=== PATIENT | male | born 1950 | race Caucasian/White ===

== ENCOUNTER 2018-08-24 18:58 | Emergency (ER) | payer OTHER ==
[~2018-08-24] VITALS: Ht 185.4 cm; Wt 104.3 kg
[2018-08-24 19:00] VITALS: BP 116/62
[2018-08-24] MEDS ORDERED: ZYRTEC10 M2 PO (20:04)
[2018-08-24] MEDS ORDERED: PATANOL5 ML OPHTHALMIC (20:04)
== END 2018-08-24 20:29 | disposition home or self-care (01) ==
LOC: ER 18:58 → EDBD 18:58 → ER 20:29
DX: H11.422 Conjunctival edema, left eye (principal); J30.9 Allergic rhinitis, unspecified; E11.9 Type 2 diabetes mellitus without complications; I10 Essential (primary) hypertension

== ENCOUNTER 2019-04-21 16:34 | Inpatient (IN) | payer OTHER ==
[~2019-04-21] VITALS: Ht 185.4 cm; Wt 112.0 kg
--- NOTE | ~2019-04-21 | HC ---
[facility] [place] [address] CONSULTATION Name: REJI COBURN Room #: 214-P ADM IN M.R.#: [id number] Admission: 04/21/19 Attend Phys: Arthur Cowart MD Discharge: Date of : 50 Report #: [id number] THIS REPORT FOR: cc: Benton Kendall MD, Steven E. MD Stephens, Thad A. MD ~ CC: Arthur Kendall DATE OF SERVICE: 04/23/2019 WOUND CARE CONSULTATION REQUESTING PHYSICIAN: Dr. Ball. CHIEF COMPLAINT: Venous leg ulcers and swelling. HISTORY OF PRESENT ILLNESS: This is a 68-year-old white male who was admitted to the hospital for syncope, which he states was multiple times over the past several weeks. The patient states that he also has noted over the past approximately 6 weeks, he has had increased amount of edema in his lower extremities, which has developed into blisters, then developed into open ulcerations. The patient states he has just been treating them with [id number]-[id number] gauze. The patient states prior to the onset of these ulcerations, he had never had any other wounds he could not heal on his own. The patient denies any other associated ulcerations at this time. The patient states they are essentially nonpainful. The patient states he has a history of MRSA in the past. PAST MEDICAL HISTORY: Significant for diabetes, hypertension, atrial fibrillation. CURRENT MEDICATIONS: Multiple, I reviewed the patient's medication list. DRUG ALLERGIES: None. SOCIAL HISTORY: The patient denies a history of smoking or alcohol use. FAMILY HISTORY: Not pertinent to current medical condition. REVIEW OF SYSTEMS: CONSTITUTIONAL: The patient denies fevers or chills. NEUROLOGIC: The patient denies numbness, tingling or weakness in arms or legs. The patient does complain of syncope several times over the past several weeks. EYES: No complaints. ENT: No complaints. [facility] [address] [place] [address] CONSULTATION Name: REJI COBURN Room #: 214-P [facility] IN ..#: [id number] Admission: 04/21/19 Attend Phys: Arthur Cowart MD Discharge: Date of : 50 Report #: [id number] CARDIAC: The patient has chronic lower extremity edema, but denies chest pain or palpitations. RESPIRATORY: The patient denies shortness of breath, cough or wheezes. GASTROINTESTINAL: The patient denies nausea, vomiting or abdominal pain. GENITOURINARY: The patient denies urgency or frequency. MUSCULOSKELETAL: No complaints. SKIN: There are multiple venous leg ulcers, left greater than right. PHYSICAL EXAMINATION: VITAL SIGNS: Temperature 36.1, pulse 72, respirations 18, BP 139/78. GENERAL: This is an alert and oriented x 3, pleasant white male who is in no obvious distress. HEENT: He is normocephalic, atraumatic. Mucous membranes are moist. Pupils are round. Sclerae white. NECK: Supple, nontender. LUNGS: Clear. HEART: Irregularly irregular. ABDOMEN: Soft, nontender. EXTREMITIES: The patient moves all extremities without difficulty. Evaluation of bilateral lower extremities reveals 2+ edema. Distal pulses intact. There is significant amount of stasis dermatitis noted on bilateral lower extremities as well as multiple superficial ulcerations on both legs, left greater than right. All these ulcers are clean and granulating. There is minimal amount of serous drainage noted from these ulcers without signs of infection. Bilateral heels and feet are intact. NEUROLOGIC: Cranial nerves 2-12 grossly intact. Motor and sensory grossly intact. LABORATORY DATA: White count 5.3, hemoglobin 11.2, BUN 11, creatinine 1.4. Arterial Dopplers bilaterally showed no signs of occlusion or hemodynamically significant stenosis. IMPRESSION: 1. Chronic ulcers, bilateral lower extremities, left greater than right, without signs of significant infection. 2. Venous insufficiency with edema. 3. History of syncope, workup undergoing. 4. Generalized debility. PLAN: At this time, we will start AmLactin to the legs for the stasis dermatitis and cover this with Xeroform, Kerlix and Rylan in bilateral lower extremities from toes to knee. We will make sure we maximize the patient's oral protein supplementation for continued healing. I have talked to the patient [address] [address] CONSULTATION Name: REJI COBURN Room #: 214-P [facility] IN M.R.#: [id number] Admission: 04/21/19 Attend Phys: Arthur Cowart MD Discharge: Date of : 50 Report #: [id number] about outpatient workup for venous insufficiency. We will continue all other current medications and we will continue to follow the patient. By: [id number] [id number] David Birch MD /nt
[~2019-04-21 16:34] MED LIST: PATANOL5 ML OPHTHALMIC; ZYRTEC10 M2 PO
[2019-04-21 16:40] VITALS: BP 180/96
[2019-04-21 17:25] LABS: HEMOGLOBIN 12.1 gm/dL (14.0-18.0); MCH 26.9 pg (26.0-34.0); MCHC 31.1 g/dL (28.0-37.0); MCV 86.5 fL (80.0-100.0); PLATELET COUNT 298 thou/uL (150-400); RDW 16.1 % (10.5-14.5); WBC 5.9 thou/uL (4.0-11.0)
[2019-04-21 17:32] LABS: ANION GAP 4 mmol/L (7-16); BUN 13 mg/dL (7-18); CALCIUM 8.3 mg/dL (8.5-10.1); CHLORIDE 103 mmol/L (98-107); CO2 33 mmol/L (21-32); CREATININE 1.2 mg/dL (0.7-1.3); GLUCOSE 90 mg/dL (74-106); POTASSIUM 4.3 mmol/L (3.5-5.1); SODIUM 140 mmol/L (136-145)
[2019-04-21 17:38] LABS: TROPONIN-I <0.06 ng/mL (<0.06)
[2019-04-21 17:50] LABS: ABSOLUTE NEUTROPHILS 4.1 thou/uL (1.4-8.2); ANISOCYTOSIS 1+; ATYPICAL LYMPHS 1 %; OVALOCYTES 1+
[2019-04-21 19:27] LABS: URINE BILIRUBIN NEGATIVE (Negative); URINE BLOOD TRACE (Negative); URINE CLARITY CLEAR; URINE COLOR YELLOW; URINE GLUCOSE-RANDOM* NEGATIVE (Negative); URINE KETONES NEGATIVE (Negative); URINE LEUKOCYTES-REFLEX TRACE (Negative); URINE NITRITE-REFLEX NEGATIVE (Negative); URINE PROTEIN (DIPSTICK) NEGATIVE (Negative); URINE SPECIFIC GRAVITY 1.015 (1.005-1.035); URINE UROBILINOGEN 0.2 E.U./dl (0.2-1.0)
[2019-04-21 19:51] VITALS: BP 172/94
[2019-04-21 19:54] VITALS: BP 172/94
[2019-04-21 20:06] VITALS: BP 166/85
[2019-04-21 20:42] VITALS: BP 161/79
[2019-04-21 21:44] LABS: CHOLESTEROL 114 mg/dL (<200); HDL CHOLESTEROL 29 mg/dL (>40); LDL CHOLESTEROL 68 mg/dL (<100); TC:HDL 3.9 Ratio (Not establshd); TRIGLYCERIDE 86 mg/dL (<150); VLDL 17 mg/dL (<40)
[2019-04-21 21:50] LABS: SERUM ASSESSMENT Clear
[2019-04-21 22:02] LABS: FOLIC ACID 5.2 ng/mL (8.6-58.9); TSH 8.591 uIU/mL (0.358-3.740)
[2019-04-21] MEDS ORDERED: DILTIAZEM ER180 M2 PO (23:52)
[2019-04-21] MEDS ORDERED: KLOR-CON 1010 MEQ PO (23:53)
[2019-04-21] MEDS ORDERED: SIMVASTATIN80 MG PO (23:54)
[2019-04-21] MEDS ORDERED: FUROSEMIDE 20 M20 M1 PO (23:56)
[2019-04-21] MEDS ORDERED: LOPRESSOR50 MG PO (23:57)
[2019-04-21] MEDS ORDERED: CELEXA 20 MG TA20 MG PO (23:57)
[2019-04-22] MEDS ORDERED: SILDENAFIL20 MG PO (00:02)
[2019-04-22] MEDS ORDERED: FLONASE 0.05%50 MCG NASAL (00:04)
[2019-04-22 00:09] VITALS: BP 160/89
[2019-04-22 04:26] VITALS: BP 157/90
--- NOTE | 2019-04-22 04:52 | NUR ---
PT WAS AN ER ADMIT. PT IS ADMITTED WITH CHF, FLUID AND URINARY RETENTION. PT IS ALERT AND ORIENTED. DAUGHTER AT BEDSIDE. PT IS STABLE UPON ARRIVAL TO THE FLOOR. NO SIGN OF DISTRESS NOTED. PT IS SEEN BY NURSE PRACTITIONER. ADMISSION ASSESSMENT AND EDUCATION COMPLETED. PT IS STABLE. SCHEUDULED MEDS ADMINISTERED TO PT. DENIES ANY PAIN. FALL PRECAUTION IN PLACE. CONTINUE TO MONITOR PATIENT.
--- NOTE | 2019-04-22 09:36 | NUR ---
ASSUMED CARE OF PT APPROX 0715, DIDN'T SEE HIM FOR ABOUT AN HOUR D/T BEING OFF THE FLOOR FOR DIAGNOSTICS. WILL HAVE ANOTHER HERE SHORTLY; HAS REMAINED NPO. HAS WOUND CONSULT FOR BLE SKIN ISSUES, WRAPPED AT THIS TIME. TALKATIVE AND IN GOOD SPIRITS. SEE SEPARATE INTERVENTIONS FOR ASSESSMENTS. ENCOURAGED HIM TO USE CALL LIGHT FOR ANY NEEDS
[2019-04-22 10:00] VITALS: BP 157/110
--- NOTE | 2019-04-22 11:43 | 2DMMODE ---
[facility] [place] [address] 2 D/M-MODE ECHOCARDIOGRAM Name: REJI COBURN Room #: 214-P ADM IN M.R.#: [id number] Admission: 04/21/19 Attend Phys: Arthur Cowart MD Discharge: Date of : 50 Report #: [id number] THIS REPORT FOR: cc: Benton Kendall MD, Steven E. MD RamyaStewart castaneda MD [facility] ~ THIS REPORT FOR: //name// APPROVED REPORT Study performed: 04/22/2019 08:07:43 EXAM: Comprehensive 2D, Doppler, and color-flow Echocardiogram Patient Location: Echo lab Room #: 214 Status: routine BSA: 2.47 HR: 102 bpm BP: 157/90 mmHg Rhythm: Atrial Fibrillation Other Information Study Quality: Good Indications Diabetes Atrial Fibrillation Hypertension/HDD 2D Dimensions RVDd: 54.58 mm IVSd: 9.53 (7-11mm) LVOT Diam: 18.51 (18-24mm) LVDd: 45.87 mm PWd: 12.70 (7-11mm) Ascending Ao: 32.29 (22-36mm) LVDs: 33.41 (25-40mm) Aortic Root: 31.83 mm IVC: 28.00 mm Volumes Left Atrial Volume (Systole) Single Plane 4CH: 115.77 mL Single Plane 2CH: 107.12 mL LA ESV Index: 52.00 mL/m2 Aortic Valve AoV Peak Adam.: 1.21 m/s [facility] [place] [address] [place] [address] 2 D/M-MODE ECHOCARDIOGRAM Name: REJI COBURN Room #: 214-P ADM IN .R.#: [id number] Admission: 04/21/19 Attend Phys: Arthur Cowart MD Discharge: Date of : 50 Report #: [id number] AO Peak Gr.: 5.87 mmHg LVOT Max P.14 mmHg LVOT Max V: 0.89 m/s JAVIER Vmax: 1.97 cm2 Pulmonary Valve PV Peak Adam.: 0.93 m/s PV Peak Gr.: 3.43 mmHg Tricuspid Valve TR Peak Adam.: 4.46 m/s TR Peak Gr.: 79.61 mmHg PA Pressure: 85.00 mmHg Left Ventricle The left ventricle is normal size. There is normal left ventricular wall thickness. Left ventricular systolic function is borderline. LVEF is 50%. This study is not technically sufficient to allow evaluation of the LV diastolic function due to atrial fibrillation. Right Ventricle Right ventricle is dilated. Right ventricle is hypokinetic. Atria Left atrium is dilated. Right atrium is dilated. Aortic Valve The aortic valve is normal in structure. Mild aortic regurgitation. There is no aortic valvular stenosis. Mitral Valve The mitral valve is normal in structure. Mild mitral regurgitation. No evidence of mitral valve stenosis. Tricuspid Valve The tricuspid valve is normal in structure. There is moderate tricuspid regurgitation. Estimated PAP 85 mmHg. There is severe pulmonary hypertension. Pulmonic Valve The pulmonary valve is normal in structure. Mild pulmonic regurgitation. Great Vessels The aortic root is normal in size. The inferior vena cava is dilated with no inspiratory collapse. [facility] [address] [place] [address] 2 D/M-MODE ECHOCARDIOGRAM Name: REJI COBURN Room #: 214-P ADM IN [facility].#: [id number] Admission: 04/21/19 Attend Phys: Arthur Cowart MD Discharge: Date of : 50 Report #: [id number] Pericardium Trace pericardial effusion. <Conclusion> The left ventricle is normal size. Left ventricular systolic function is borderline. LVEF is 50%. This study is not technically sufficient to allow evaluation of the LV diastolic function due to atrial fibrillation. Right ventricle is dilated. Right ventricle is hypokinetic. Left atrium is dilated. Right atrium is dilated. Mild aortic regurgitation. Mild mitral regurgitation. There is moderate tricuspid regurgitation. Estimated PAP 85 mmHg. There is severe pulmonary hypertension. The aortic root is normal in size. Trace pericardial effusion. <ELECTRONICALLY SIGNED> By: Stewart Bui MD, [facility] 04/22/19 1142 1142 1142 Stewart Bui MD, FACC /INF
[2019-04-22 13:00] VITALS: BP 153/87; BP 153/88; BP 159/92
[2019-04-22] MEDS ORDERED: AUGMENTIN400 MG/53 PO (13:26)
[2019-04-22] MEDS ORDERED: KEFLEX250 M1 PO (13:27)
[2019-04-22] MEDS ORDERED: ALEVE220 M1 PO (13:36)
[2019-04-22] MEDS ORDERED: SPIRONOLACTONE25 MG PO (13:38)
[2019-04-22] MEDS ORDERED: CLOBETASOL EMOL15 GM TP (13:42)
[2019-04-22] MEDS ORDERED: LOPERAMIDE2 MG PO (13:44)
[2019-04-22 16:00] VITALS: BP 136/80
--- NOTE | 2019-04-22 18:15 | NUR ---
KIM: LAB NEEDS TO DRAW A BASELINE THEN RN IMMEDIATELY ADMINISTER. IN THE MIDST OF DOING A D/C AND REC REPORT FROM ED ON A NEW PT. CALLED LAB, THEY ASKED THAT NIGHT CALL WHEN READY TO GIVE.
[2019-04-22 20:15] VITALS: BP 128/65
[2019-04-23] MEDS ORDERED: PREDNISONE 10 M10 M1 PO (03:14)
--- NOTE | 2019-04-23 04:29 | NUR ---
ASSUMED PT CARE AT 1900. PT IS ALERT AND ORIENTED. NO SIGN OF DISTRESS NOTED IN PT. DAUGHTER AT BEDSIDE. PT IS STABLE. ASSESSMENT COMPLETED AND DOCUMETED. DENIES ANY PAIN. SCHEDULED MEDS ADMINISTERED TO PT. PT IS NPO AFTER MN FOR A CARDIAC CATH. PT VERBALIZES UNDERSTANDING. NO FURTHER NEEDS AT THIS TIME.
[2019-04-23 04:31] VITALS: BP 145/64
[2019-04-23 05:20] LABS: HEMATOCRIT 35.9 % (42.0-52.0); HEMOGLOBIN 11.2 gm/dL (14.0-18.0); MCH 26.6 pg (26.0-34.0); MCHC 31.3 g/dL (28.0-37.0); PLATELET COUNT 269 thou/uL (150-400); RBC 4.22 mil/uL (4.50-6.00); RDW 16.2 % (10.5-14.5); WBC 5.3 thou/uL (4.0-11.0)
[2019-04-23 05:41] LABS: CALCIUM 7.7 mg/dL (8.5-10.1); CREATININE 1.4 mg/dL (0.7-1.3); MAGNESIUM 1.2 mg/dL (1.8-2.4); POTASSIUM 3.7 mmol/L (3.5-5.1)
[2019-04-23 08:00] VITALS: BP 122/68
--- NOTE | 2019-04-23 08:35 | NUR ---
ASSUMED CARE OF PT APPROX 0715, RESTING; EXPLAINED AN UPSETTING BOUT OF FEELING DIZZY THAT HE HAD PRIOR TO DAY SHIFT. A&0X4, NPO FOR POSSIBLE STRESS TEST. CONFUSED ABOUT DIAGNOSIS AND TESTS. WILL PRINT OUT MORE INFO AND TALKED W/PEBBLES CARDIAC SCREW DRIVER OPERATOR SO SHE CAN ALSO DIRECT. PT HAD CARDIAC REHAB TALK TO HIM DAY PRIOR BUT WAS EVEN MORE CONFUSED HE STATED. ENCOURAGED HIM TO CONTINUE ASKING QUESTIONS OF ALL OF US AND WE WOULD HELP EQUIP HIM WITH INFO ONCE ALL DIAGNOSTICS AND DX ARE COMPILED/RECONCILED. ENCOURAGED HIM TO USE CALL LIGHT FOR ANY NEEDS. SEE SEPARATE INTERVENTIONS FOR ASSESSMENTS. AMB STEADY AND SLOW, ENCOURAGED HIM TO CALL FOR SBA D/T EARLIER DIZZINESS AND SET BED ALARM
[2019-04-23 08:40] LABS: ABSOLUTE NEUTROPHILS 3.4 thou/uL (1.4-8.2); PLATELET ESTIMATE NORMAL
[2019-04-23 08:41] LABS: ANISOCYTOSIS 1+
[2019-04-23 08:42] LABS: LARGE PLATELETS OCCASIONAL
--- NOTE | 2019-04-23 09:09 | HC ---
[facility] [place] [address] CONSULTATION Name: REJI COBURN Room #: 214-P [facility] IN M.R.#: [id number] Admission: 04/21/19 Attend Phys: Arthur Cowart MD Discharge: Date of : 50 Report #: [id number] THIS REPORT FOR: cc: Benton Kendall MD, Steven E. MD Al-Mubaslat, Ahmad MD ~ THIS REPORT FOR: //name// CC: Arthur Kendall DATE OF SERVICE: 04/22/2019 ENDOCRINE CONSULTATION NOTE CONSULTING PHYSICIAN: Dr. Cowart. REASON FOR CONSULTATION: Uncontrolled type 2 diabetes mellitus, hypoglycemia. HISTORY OF PRESENT ILLNESS: This is a 68-year-old male patient whose medical background is significant for multiple medical issues including type 2 diabetes mellitus, hypertension, obesity, and atrial fibrillation. The patient presented to the ER yesterday with a main concern of syncopal episodes. The patient notes that his last syncopal episode was actually 3 days ago. He describes a generalized course of progressive weakness, tiredness, lightheadedness that culminated in these episodes. The patient has been known to have type 2 diabetes mellitus for a few years, and has been most recently on a regimen of Humulin N insulin at a dose of 36 units daily. As per his indication, the patient has never been on oral antidiabetic agents in the past. The patient acknowledges that he does not monitor his blood glucose values nearly at all at home, but he does appreciate a frequent occurrence of hypoglycemic symptoms. The patient does not report any known diabetic complications including chronic kidney disease, peripheral neuropathy, or diabetic eye disease. The patient is not aware of issues pertaining to coronary artery disease. Interestingly, the patient had history of atopic dermatitis requiring chronic therapy with prednisone for over 20 years that he described as a low dose taken twice a day, but could not specify the dose. It appears that the patient decided a month ago to taper himself off of this to decrease the amount of medications he takes. Furthermore, on admission, the patient was found to be in CHF and was admitted for further care and monitoring. [facility] [address] [place] [address] CONSULTATION Name: REJI COBURN Room #: 214-P [facility] IN M.R.#: [id number] Admission: 04/21/19 Attend Phys: Arthur Cowart MD Discharge: Date of : 50 Report #: [id number] REVIEW OF SYSTEMS: CONSTITUTIONAL: Fatigue, tiredness, bit of weight loss, but no fever or chills. HEENT: Negative for sore throat, sinus pain, ear drainage. PULMONARY: Dyspnea on exertion. No cough, no hemoptysis. CARDIAC: Syncope, palpitations, but not chest pain. The patient has had intermittent issues with lower extremity edema and stasis dermatitis over both lower extremities. GASTROINTESTINAL: Abdominal discomfort, abdominal distention, but not nausea, vomiting or major changes in bowel movement frequency. NEUROLOGY: Negative for seizure activity. Severe frequent headaches, but noted for the syncopal episode. PSYCHIATRIC: Negative for delusions, hallucinations. Otherwise, review of systems noncontributory other than those mentioned in HPI. PAST MEDICAL HISTORY: 1. Obesity. 2. Type 2 diabetes mellitus. 3. Hypertension. 4. Atrial fibrillation. 5. Lower extremity edema. 6. Likely history of congestive heart failure. 7. Atopic dermatitis. 8. Hyperlipidemia. 9. Hypertension. OUTPATIENT MEDICATIONS: Include: 1. Humulin N insulin at a dose of 36 units daily, diltiazem 60 mg p.o. b.i.d. 2. Simvastatin 20 mg at bedtime. 3. Lasix 40 mg b.i.d. 4. Metoprolol 50 mg b.i.d. 5. Citalopram daily. 6. Sildenafil 20 mg at bedtime. 7. Patanol. ALLERGIES: The patient has no known drug allergies. FAMILY HISTORY: Noncontributory. SOCIAL HISTORY: The patient does not smoke. Drinks alcohol only occasionally. 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 PHYSICAL EXAMINATION: GENERAL: Pleasant male patient who is not in apparent distress, he is lying comfortably in bed. VITAL SIGNS: Blood pressure is 153/87 mmHg, heart rate is 116 beats per minute, respiration 18 per minute, temperature 36.6 [place] [address] CONSULTATION Name: REJI COBURN Room #: 214-P [facility] IN M.R.#: [id number] Admission: 04/21/19 Attend Phys: Arthur Cowart MD Discharge: Date of : 50 Report #: [id number] CONSTITUTIONAL: The patient is lying comfortably in bed, not in apparent distress. HEENT: Anicteric sclerae. Intact extraocular motions. NECK: Supple, without JVD, carotid bruits. The patient does not have thyromegaly. CHEST: Noted for moderate entry bilaterally with scattered rales and rhonchi. HEART: Regular rate and rhythm without murmurs or gallops. ABDOMEN: Soft and lax without tenderness or organomegaly. EXTREMITIES: Lower extremity exam is noted for significant stasis dermatitis changes over both lower extremities, but no skin breaks or ulcerations. NEUROLOGIC: Awake, alert and oriented to time, place and person. The remainder of his examination is largely nonfocal. PSYCHIATRIC: Pleasant, interactive, appropriate, able to answer all my questions appropriately. LABORATORY DATA: On arrival, the patient's blood glucose got as low as 47 mg/dL and over the past 24 hours had gotten as low as 72 mg/dL. The highest value recorded is 119 mg/dL. Sodium 140, potassium 4.3, chloride 103, CO2 of 33, anion gap 4, BUN 13, creatinine 1.2, glucose 90, calcium 8.3, EGFR 60, total cholesterol 114, triglycerides 86, HDL 29, LDL 68. BNP 10,733. White blood count 5.9, hemoglobin 12.1, hematocrit 39, platelets 298. TSH 8.591. ASSESSMENT AND PLAN: 1. Hypoglycemia. The patient presented with a documented severe hypoglycemia in addition to subjective reports of frequent hypoglycemia in the outpatient setting. This certainly might have to do a good bit with active insulin use with a goal for a consideration of therapeutic change in favor of agents that are less hypoglycemic. In the immediate setting, I would certainly keep the patient off insulin and continue to monitor his blood glucose closely and intervene as needed also and as will be discussed below, the patient will be investigated for the issue of adrenal insufficiency, which if present, would also contribute to hypoglycemia. 2. Type 2 diabetes mellitus. The patient had diabetes course that has not been necessarily lengthy. Interestingly, he was initiated on insulin therapy immediately after diagnosis of diabetes mellitus. I will check a hemoglobin A1c to better evaluate his overall standing over the past few months and would eventually consider options that are less hypoglycemic as noted above to avoid similar occurrences of hypoglycemia in the future. In the immediate setting, the patient will be placed on a low intensity scale Humalog supplemental coverage. That would be customized so as to avoid insulin intake for blood glucose values below 200 mg/dL until we see further stability. Blood glucose monitoring will continue a.c. and at bedtime. 3. Adrenal insufficiency. As noted above, the patient has been maintained on chronic prednisone therapy for atopic dermatitis. He interestingly decided to wean that off less than a month ago. Naturally, I have an immediate concern about the possibility of adrenal insufficiency given his chronic steroid [address] [address] CONSULTATION Name: IRISHREJI Room #: 214-P ADM IN M.R.#: [id number] Admission: 04/21/19 Attend Phys: Arthur Cowart MD Discharge: Date of : 50 Report #: [id number] therapy, which if present might shed some light on his syncopal episodes, hypoglycemia, and generalized decline. Given the high suspicion of adrenal insufficiency with this background, I will proceed directly to an ACTH stimulation test and further immediate and long-term management will be determined accordingly. 4. Hypothyroidism. The patient had a TSH that is just above 8 falling in the area of subclinical hypothyroidism. I will check a free T4 level and thyroid peroxidase antibodies to determine whether the patient is in need of active levothyroxine therapy or not. 5. Hyperlipidemia. The patient is maintained on atorvastatin therapy, he is to continue with this. 6. Hypertension. The patient's level of blood pressure control is marginal. I will defer to the Hospital Medicine team and Cardiology for this aspect of care. I have reviewed the patient's clinical care notes, laboratory data and other pertinent clinical information for over 35 minutes. I certainly appreciate this consultation by Dr. Cowart. <ELECTRONICALLY SIGNED> By: Digna Merida MD 04/23/19 0909 [id number] Digna Merida MD /nt
[2019-04-23 12:05] VITALS: BP 139/78
[2019-04-23 13:11] LABS: CORTISOL 30 MIN 10.8 ug/dL (Not Estab.)
--- NOTE | 2019-04-23 14:26 | NUR ---
WOUND CARE F/U; ASSESSMENT PRIOR TO DRESSING CHANGE. NO DRAINAGE SEEN OR MACERATION. A FEW SUPRFICIAL WOUNDS IDENTIFIED. RECOMMENDATIONS; CONT CURRENT DRESSINGS
[2019-04-23 16:00] VITALS: BP 135/80
--- NOTE | 2019-04-23 16:53 | NUR ---
Chart reviewed and case discussed with the care team. Pt worked with PT today. He has family support and denies any dc concerns. Likely dc with outpt f/u.
[2019-04-23 20:30] VITALS: BP 139/80
[2019-04-23 23:08] LABS: GLYCOHEMOGLOBIN (HGB A1C) 5.5 % (4.8-5.6)
--- NOTE | 2019-04-24 03:49 | NUR ---
ASSESSMENT DOCUMENTED.PT BEEN RESTING IN NO ACUTE DISTRESS.VSS.A/OX4.CONTINUES TO DIURESE WITH LASIX.PT VOICES THAT HE IS FEELING MUCH BETTER AND BREATHING BETTER.AFIB ON MONITOR BUT CONTROLLED.ANTIBIOTICS PER ORDERS.POC IS TO CONT WITH CURRENT ORDERS.
[2019-04-24 04:00] VITALS: BP 110/71
[2019-04-24 06:15] LABS: HEMATOCRIT 35.9 % (42.0-52.0); HEMOGLOBIN 11.3 gm/dL (14.0-18.0); MCHC 31.4 g/dL (28.0-37.0); MCV 85.8 fL (80.0-100.0); RBC 4.18 mil/uL (4.50-6.00); RDW 16.3 % (10.5-14.5); WBC 5.6 thou/uL (4.0-11.0)
[2019-04-24 06:53] LABS: CALCIUM 7.6 mg/dL (8.5-10.1); CREATININE 1.3 mg/dL (0.7-1.3); POTASSIUM 3.6 mmol/L (3.5-5.1); TOTAL BILIRUBIN 0.3 mg/dL (<0.1-1.0); TOTAL PROTEIN 6.8 g/dL (6.4-8.2)
[2019-04-24 08:42] VITALS: BP 122/70
[2019-04-24 12:06] VITALS: BP 162/87
[2019-04-24 15:30] VITALS: BP 148/82
[2019-04-24 18:13] VITALS: BP 148/82
--- NOTE | 2019-04-24 18:48 | NUR ---
ASSESSMENT DOCUMENTED. VSS. NO PAIN. NO SOB. RN WALKED WITH PT IN HALLWAY. PT TOLERATED WELL. WOUND CARE GIVEN AND DRESSINGS CHANGED BY RN. 1500 ML FLUID RESTRICTION FOLLOWED. BILAT LOWER EXT EDEMA 2-3+. IMPROVING. PT RESTING IN BED WITH CALL LIGHT IN REACH. WILL CONTINUE TO MONITOR.
[2019-04-24 20:05] VITALS: BP 150/82
[2019-04-25] VITALS (7 sets, daily range): BP systolic 135–184; BP diastolic 83–99
--- NOTE | 2019-04-26 04:15 | NUR ---
PT ALERT AND ORIENTED X 4. FAMILY AT BEDSIDE AT BEGINNING OF SHIFT. WOULD CARE TO LE DONE AND WRAPPED. BG 195 AT HS. PT WALKED AROUND UNIT AT BEGINNING OF SHIFT, TOLERATES WELL. DENIES CP, NAUSEA, VOMITING OR DIARRHEA. WILL CONTINUE WITH POC.
[2019-04-26 05:21] VITALS: BP 143/86
[2019-04-26 08:00] VITALS: BP 147/89
[2019-04-26 09:14] LABS: CALCIUM 7.7 mg/dL (8.5-10.1); CREATININE 1.3 mg/dL (0.7-1.3); POTASSIUM 3.7 mmol/L (3.5-5.1)
[2019-04-26 12:19] VITALS: BP 123/75
[2019-04-26 16:00] VITALS: BP 143/80
--- NOTE | 2019-04-26 16:44 | NUR ---
ASSESSMENT CHARTED. PT ALERT AND ORIENTED. VSS. DENIED HAVING PAIN OR DISCOMFORT. WOUND CARE TREATMENT PROVIDED SCHEDULED. NO CONCERNS AT THIS TIME. WILL CONTINUE TO MONITOR.
[2019-04-26 20:30] VITALS: BP 136/86
[2019-04-27 03:18] VITALS: BP 152/79
--- NOTE | 2019-04-27 04:23 | NUR ---
ASSUMED CARE 1900. PT ALERT AND ORIENTED. FAMILY AT BEDSIDE. AMBULATED STEADYLY IN HALLWAY. ADHERES TO FLUID RESTRICTION. DAILY WEIGHT DOCUMENTED. NO FURTHER CONCERNS. DENIES CHEST PAIN. SOB, OR NAUSEA. PT PROGRESSING TOWARDS GOAL. WILL CONTINUE TO FOLLOW POC.
[2019-04-27 07:15] VITALS: BP 134/70
[2019-04-27 11:30] VITALS: BP 161/68
[2019-04-27] MEDS ORDERED: LIPITOR40 MG PO (12:58)
[2019-04-27] MEDS ORDERED: NORVASC5 MG PO (12:59)
[2019-04-27] MEDS ORDERED: BENICAR40 MG PO (12:59)
[2019-04-27] MEDS ORDERED: SPIRONOLACTONE25 MG PO (13:00)
[2019-04-27] MEDS ORDERED: DEMADEX20 MG PO (13:04)
[2019-04-27] MEDS ORDERED: HYDROCORTISONE10 MG PO ×2 (13:05→13:06)
[2019-04-27] MEDS ORDERED: GLUCOPHAGE500 MG PO (13:06)
[2019-04-27] MEDS ORDERED: TRADJENTA5 MG PO (13:06)
[2019-04-27] MEDS ORDERED: FOLIC ACID1 MG PO (13:07)
[2019-04-27] MEDS ORDERED: XARELTO20 MG PO (13:10)
[2019-04-27 14:07] VITALS: BP 161/68
--- NOTE | 2019-04-27 15:04 | NUR ---
ASSESSMENT CHARTED. PT ALERT AND ORIENTED. VSS. DENIED HAVING PAIN OR DISCOMFORT. WOUND CARE PROVIDED ORDERED. SEEN BY DR. ALBRECHT. ORDERS GOVEN TO DISCHARGE PT TO HOME. DISCHARGE INSTRUCTIONS GIVEN TO PT. PT VERBERLISED UNDERSTANDING. PT LEFT THE FACILITY ACCOMPANIED BY THE AND DAUGHTER.
--- NOTE | 2019-04-29 11:21 | EKG ---
[facility] [place] [address] ELECTROCARDIOGRAM REPORT Name: REJI COBURN Room #: 214- DIS IN M.R.#: [id number] Admission: 04/21/19 Attend Phys: Arthur Cowart MD Discharge: 04/27/19 Date of : 50 Report #: [id number] THIS REPORT FOR: cc: Benton Kendall MD, Steven E. MD Couchonnal, Luis F. MD ~ THIS REPORT FOR: //name// [facility] ED Test Date: 2019-04-21 Test Time: 17:00:35 Pat Name: REJI COBURN Department: Room: 214 Gender: M Percussion Instrument Tuner: MARCEL : 1950 Requested By: Mack Johnson Order Number: [id number] MD: Eamon Del Angel Measurements Intervals [place] Rate: 84 P: VT: QRS: 126 QRSD: 89 T: 33 QT: 473 QTc: 560 Interpretive Statements Atrial fibrillation Left posterior fascicular block Low voltage, precordial leads No previous ECG available for comparison Electronically Signed On 04-22-2019 11:37:50 PHYSICAL DESIGN ENGINEER by Eamon Del Angel [email or web address] <ELECTRONICALLY SIGNED> By: Eamon Del Angel MD 04/22/19 1137 [id number] Eamon Del Angel MD /EPI
== END 2019-04-27 14:54 | disposition home or self-care (01) | DRG 637 ==
LOC: ER 16:34 → 2N 19:22 → EROBS 19:22 → 2N 20:04 → ENTRNSPT 04-27 14:44 → EDTRNSPTSTS 04-27 14:46 → 2N 04-27 14:54
PROVIDERS: Internal Medicine; Nurse Practitioner; Nurse Practitioner Adult Health; ADMIT Hospitalist
DX: E11.649 Type 2 diabetes mellitus with hypoglycemia without coma (principal); I50.23 Acute on chronic systolic (congestive) heart failure; E27.40 Unspecified adrenocortical insufficiency; L97.929 Non-pressure chronic ulcer of unspecified part of left lower leg with unspecified severity; L97.919 Non-pressure chronic ulcer of unspecified part of right lower leg with unspecified severity; I11.0 Hypertensive heart disease with heart failure; I48.91 Unspecified atrial fibrillation; R55 Syncope and collapse; R33.9 Retention of urine, unspecified; E66.9 Obesity, unspecified; E03.9 Hypothyroidism, unspecified; E78.5 Hyperlipidemia, unspecified; I87.2 Venous insufficiency (chronic) (peripheral); I44.5 Left posterior fascicular block; E83.42 Hypomagnesemia; R63.0 Anorexia; F19.90 Other psychoactive substance use, unspecified, uncomplicated; L20.9 Atopic dermatitis, unspecified; R00.1 Bradycardia, unspecified; Z68.32 Body mass index [BMI] 32.0-32.9, adult; Z79.899 Other long term (current) drug therapy
CPT/HCPCS: 10081

== ENCOUNTER → 2019-05-03 | Outpatient (CLI) | payer OTHER ==
[~2019-05-03] MED LIST changes: +ALEVE220 M1 PO; +AUGMENTIN400 MG/53 PO; +BENICAR40 MG PO; +CELEXA 20 MG TA20 MG PO; +CLOBETASOL EMOL15 GM TP; +DEMADEX20 MG PO; +DILTIAZEM ER180 M2 PO; +FLONASE 0.05%50 MCG NASAL; +FOLIC ACID1 MG PO; +FUROSEMIDE 20 M20 M1 PO; +GLUCOPHAGE500 MG PO; +HYDROCORTISONE10 MG PO; +KEFLEX250 M1 PO; +KLOR-CON 1010 MEQ PO; +LIPITOR40 MG PO; +LOPERAMIDE2 MG PO; +LOPRESSOR50 MG PO; +NORVASC5 MG PO; +PREDNISONE 10 M10 M1 PO; +SILDENAFIL20 MG PO; +SIMVASTATIN80 MG PO; +SPIRONOLACTONE25 MG PO; +TRADJENTA5 MG PO; +XARELTO20 MG PO
== END ==
LOC: SJCVC 15:20
DX: I48.0 Paroxysmal atrial fibrillation (principal); I44.5 Left posterior fascicular block; R94.31 Abnormal electrocardiogram [ECG] [EKG]; I11.0 Hypertensive heart disease with heart failure; I50.9 Heart failure, unspecified; E78.5 Hyperlipidemia, unspecified; E11.9 Type 2 diabetes mellitus without complications; E78.00 Pure hypercholesterolemia, unspecified; Z79.899 Other long term (current) drug therapy

== ENCOUNTER → 2019-05-13 | Outpatient (CLI) | payer OTHER | LOC: HYPER 13:35 | DX: E11.628 Type 2 diabetes mellitus with other skin complications (principal); L03.115 Cellulitis of right lower limb; L03.116 Cellulitis of left lower limb; L30.9 Dermatitis, unspecified; I87.2 Venous insufficiency (chronic) (peripheral); I50.33 Acute on chronic diastolic (congestive) heart failure; Z79.84 Long term (current) use of oral hypoglycemic drugs ==

== ENCOUNTER → 2019-05-31 | Outpatient (CLI) | payer OTHER | LOC: HYPER 13:10 | DX: E11.628 Type 2 diabetes mellitus with other skin complications (principal); L03.116 Cellulitis of left lower limb; L03.115 Cellulitis of right lower limb; I87.2 Venous insufficiency (chronic) (peripheral); L30.9 Dermatitis, unspecified; I50.9 Heart failure, unspecified; Z79.84 Long term (current) use of oral hypoglycemic drugs ==

== ENCOUNTER → 2019-07-06 | Outpatient (CLI) | payer OTHER | LOC: SJCVCIMAG 11:38 | DX: R94.31 Abnormal electrocardiogram [ECG] [EKG] (principal); I10 Essential (primary) hypertension; I48.91 Unspecified atrial fibrillation; E78.5 Hyperlipidemia, unspecified; E11.9 Type 2 diabetes mellitus without complications ==

== ENCOUNTER → 2019-11-18 | Outpatient (CLI) | payer OTHER | LOC: SJCVC 14:22 | PROVIDERS: ATTEND Internal Medicine Cardiovascular Disease | DX: I48.91 Unspecified atrial fibrillation (principal); R94.31 Abnormal electrocardiogram [ECG] [EKG]; E78.00 Pure hypercholesterolemia, unspecified; E11.9 Type 2 diabetes mellitus without complications; I11.0 Hypertensive heart disease with heart failure; I50.9 Heart failure, unspecified; Z79.899 Other long term (current) drug therapy ==

== ENCOUNTER → 2020-03-01 | Outpatient (CLI) | payer OTHER | LOC: SJCVC 13:39 | PROVIDERS: ATTEND Internal Medicine Cardiovascular Disease | DX: R94.31 Abnormal electrocardiogram [ECG] [EKG] (principal); I48.91 Unspecified atrial fibrillation; I11.0 Hypertensive heart disease with heart failure; I50.9 Heart failure, unspecified; E78.00 Pure hypercholesterolemia, unspecified; E11.9 Type 2 diabetes mellitus without complications; Z86.79 Personal history of other diseases of the circulatory system; Z72.89 Other problems related to lifestyle; Z79.899 Other long term (current) drug therapy; Z79.84 Long term (current) use of oral hypoglycemic drugs ==

== ENCOUNTER 2020-08-15 08:00 | Inpatient (IN) | payer OTHER ==
[2020-08-15] VITALS (40 sets, daily range): BP systolic 81–120; BP diastolic 41–69
[~2020-08-15] VITALS: Ht 185.4 cm; Wt 111.6 kg
[2020-08-15 08:46] LABS: HEMOGLOBIN 6.7 gm/dL (14.0-18.0)
[2020-08-15 08:48] LABS: ABSOLUTE NEUTROPHILS 5.2 thou/uL (1.4-8.2); BASOPHILS 0.3 % (0.0-2.0); EOSINOPHILS 4.6 % (0.0-3.0); HEMATOCRIT 20.3 % (42.0-52.0); LYMPHOCYTES 27.1 % (24.0-44.0); MCH 30.5 pg (26.0-34.0); MCHC 33.2 g/dL (28.0-37.0); MONOCYTES 11.6 % (1.0-8.0); PLATELET COUNT 365 thou/uL (150-400); POLYS 56.4 % (36.0-66.0); RBC 2.21 mil/uL (4.50-6.00); RDW 14.5 % (10.5-14.5); WBC 9.2 thou/uL (4.0-11.0)
[2020-08-15 08:52] LABS: ANION GAP 14 mmol/L (7-16); BUN 48 mg/dL (7-18); CALCIUM 8.4 mg/dL (8.5-10.1); CHLORIDE 104 mmol/L (98-107); CO2 24 mmol/L (21-32); CREATININE 2.3 mg/dL (0.7-1.3); GLUCOSE 200 mg/dL (74-106); POTASSIUM 4.2 mmol/L (3.5-5.1); SODIUM 142 mmol/L (136-145)
[2020-08-15 08:57] LABS: APTT 22.1 Seconds (24.5-32.8); INR 1.05; PROTIME 11.4 Seconds (10.5-12.1)
[2020-08-15 09:02] LABS: ALBUMIN 3.6 g/dL (3.4-5.0); SGOT 8 U/L (15-37); SGPT 18 U/L (16-63); TOTAL BILIRUBIN 0.4 mg/dL (0.2-1.0); TOTAL PROTEIN 6.8 g/dL (6.4-8.2); TROPONIN-I <0.06 ng/mL (<0.06)
[2020-08-15] MEDS ORDERED: GLIPIZIDE 10 MG10 MG PO (09:24)
[2020-08-15] MEDS ORDERED: TORSEMIDE20 MG PO (09:24)
[2020-08-15] MEDS ORDERED: LIPITOR 20 MG T20 M1 PO (09:27)
[2020-08-15] MEDS ORDERED: HYDROCORT PO (09:29)
[2020-08-15] MEDS ORDERED: LOPRESSOR50 MG PO (09:30)
[2020-08-15 11:17] LABS: % SATURATION 5 % (20-39); IRON 19 ug/dL (65-175); TIBC 356 ug/dL (250-450)
[2020-08-15 11:35] LABS: ANISOCYTOSIS 1+; HYPOCHROMASIA 1+; PLATELET ESTIMATE NORMAL; POLYCHROMASIA 1+
[2020-08-15 12:17] LABS: FOLIC ACID 45.1 ng/mL (8.6-58.9)
--- NOTE | 2020-08-15 12:30 | NUR ---
Patient admitted to ICU from ED. Monitors placed, he is alert and oriented. He is going to send his clothes home with his and keep his cell phone. Npo status a this time. Two units of blood to be infused. Consent is signed, risks/benefits explained, information sheet provided to him.
--- NOTE | 2020-08-15 13:25 | NUR ---
1325- Signs and symptoms reviewed with patient for reaction to blood transfusion. He expressed he understood and blood product to be initiated.
[2020-08-15] MEDS ORDERED: ALIEVE (13:40)
--- NOTE | 2020-08-15 13:44 | EKG ---
[place] [address] [facility] [place] [address] ELECTROCARDIOGRAM REPORT Name: REJI COBURN Room #: 250-P ADM IN M.R.#: [id number] Admission: 08/15/20 Attend Phys: Arthur Cowart MD Discharge: Date of : 50 Report #: [id number] [facility] ED Test Date: 2020-08-15 Test Time: 08:57:47 Pat Name: REJI COBURN Department: Room: 250 Gender: M Pump Operator: : 1950 Requested By: Ramón Rock Order Number: [id number] MD: Narendra Valencia Measurements Intervals [place] Rate: 85 P: AK: QRS: 84 QRSD: 97 T: 16 QT: 404 QTc: 481 Interpretive Statements Atrial fibrillation Borderline right axis deviation Low voltage, precordial leads Borderline prolonged QT interval Compared to ECG 04/21/2019 17:00:35 Left posterior fascicular block no longer present Electronically Signed On 08-15-2020 13:44:41 CDT by Narendra Valencia [email or web address] <ELECTRONICALLY SIGNED> By: Narendra Valencia MD, [facility] 08/15/20 1344 [phone] Narendra Valencia MD, [facility] /EPI
[2020-08-15 22:50] LABS: HEMATOCRIT 22.9 % (42.0-52.0); HEMOGLOBIN 7.7 gm/dL (14.0-18.0)
[2020-08-16] VITALS (27 sets, daily range): BP systolic 81–145; BP diastolic 46–92
[2020-08-16 06:39] LABS: ABSOLUTE NEUTROPHILS 4.6 thou/uL (1.4-8.2); BASOPHILS 0.5 % (0.0-2.0); HEMATOCRIT 25.2 % (42.0-52.0); HEMOGLOBIN 8.3 gm/dL (14.0-18.0); LYMPHOCYTES 18.4 % (24.0-44.0); MCH 30.4 pg (26.0-34.0); MCHC 32.9 g/dL (28.0-37.0); MCV 92.3 fL (80.0-100.0); MONOCYTES 10.7 % (1.0-8.0); POLYS 64.4 % (36.0-66.0); RBC 2.73 mil/uL (4.50-6.00); RDW 14.4 % (10.5-14.5); WBC 7.1 thou/uL (4.0-11.0)
[2020-08-16 06:41] LABS: CREATININE 1.4 mg/dL (0.7-1.3); MAGNESIUM 2.1 mg/dL (1.8-2.4); POTASSIUM 4.6 mmol/L (3.5-5.1)
[2020-08-16 06:45] LABS: PLATELET COUNT 284 thou/uL (150-400)
--- NOTE | 2020-08-16 09:40 | 2DMMODE ---
[facility] [place] [address] 2 D/M-MODE ECHOCARDIOGRAM Name: REJI COBURN Room #: 250-P ADM IN M.R.#: [id number] Admission: 08/15/20 Attend Phys: Arthur Cowart MD Discharge: Date of : 50 Report #: [id number] THIS REPORT FOR: cc: Benton Kendall MD, Steven E. MD Lundgren, Craig H. MD [facility] ~ APPROVED REPORT Study performed: 08/16/2020 08:53:20 EXAM: Comprehensive 2D, Doppler, and color-flow Echocardiogram Patient Location: ICU Room #: 250 Status: routine BSA: 2.33 HR: 90 bpm BP: 94/70 mmHg Rhythm: Atrial Fibrillation Other Information Study Quality: Good Indications Atrial Fibrillation Hx: Afib, CHF, HTN, DM. 2D Dimensions RVDd: 39.00 mm IVSd: 12.00 (7-11mm) LVOT Diam: 21.00 (18-24mm) LVDd: 46.00 mm PWd: 12.00 (7-11mm) Ascending Ao: 35.00 (22-36mm) LVDs: 33.00 (25-40mm) Left Atrium: 48.00 (27-40mm) Aortic Root: 38.00 mm Volumes Left Atrial Volume (Systole) Single Plane 4CH: 118.92 mL Single Plane 2CH: 102.86 mL Aortic Valve AoV Peak Adam.: 1.65 m/s AO Peak Gr.: 10.84 mmHg LVOT Max P.07 mmHg LVOT Max V: 1.13 m/s JAVIER Vmax: 2.30 cm2 [facility] [address] [place] [address] 2 D/M-MODE ECHOCARDIOGRAM Name: REJI COBURN Room #: 250-P ADM IN .R.#: [id number] Admission: 08/15/20 Attend Phys: Arthur Cowart MD Discharge: Date of : 50 Report #: [id number] Mitral Valve MV Decel. Time: 144.47 ms MV E Max Adam.: 1.42 m/s Pulmonary Valve PV Peak Adam.: 1.11 m/s PV Peak Gr.: 4.94 mmHg Tricuspid Valve TR Peak Adam.: 3.13 m/s RAP Estimate: 5.00 mmHg TR Peak Gr.: 39.14 mmHg PA Pressure: 44.00 mmHg Left Ventricle The left ventricle is normal size. There is normal LV segmental wall motion. Mild concentric left ventricular hypertrophy. Left ventricular systolic function is normal. LVEF is 55-60%. This study is not technically sufficient to allow evaluation of the LV diastolic function due to atrial fibrillation. Right Ventricle The right ventricle is normal size. The right ventricular systolic function is normal. Atria Left atrium is severely dilated. Right atrium is moderately dilated. Aortic Valve The aortic valve is mildly sclerotic, trileaflet. Mild aortic regurgitation. There is no aortic valvular stenosis. Mitral Valve The mitral valve is normal in structure. There is no mitral valve regurgitation noted. No evidence of mitral valve stenosis. Tricuspid Valve The tricuspid valve is normal in structure. Mild tricuspid regurgitation. Estimated PAP is 45mmHg. Pulmonic Valve The pulmonary valve is normal in structure. Trace pulmonic regurgitation. Great Vessels The aortic root is normal in size. The ascending aorta is normal in [facility] [address] [place] [address] 2 D/M-MODE ECHOCARDIOGRAM Name: REJI COBURN Room #: 250-P ADM IN M.R.#: [id number] Admission: 08/15/20 Attend Phys: Arthur Cowart MD Discharge: Date of : 50 Report #: [id number] size. IVC is normal in size and collapses >50% with inspiration. Pericardium There is no pericardial effusion. <Conclusion> Left ventricular systolic function is normal. There is normal LV segmental wall motion. LVEF is 55-60%. Left atrium is severely dilated. The aortic valve is mildly sclerotic, trileaflet. Mild aortic regurgitation, no stenosis. The mitral valve is normal in structure. No mitral valve regurgitation. Mild tricuspid regurgitation. Estimated pulmonary artery pressure of 45mmHg. There is no pericardial effusion. <ELECTRONICALLY SIGNED> By: Melo Flor MD, [facility] 08/16/20939 9 9 Melo Flor MD, [facility] /INF
--- NOTE | 2020-08-16 11:48 | NUR ---
Case discussed with the care team and chart reveiwed. Pt is currently in ICU with his at bedside awaiting EGD for GI bleed. The pt was indep and active prior to admission. He had been planning to return to work tomorrow as he has been off over a year d/t the pandemic. He is hoping to dc soon pending the EGD results. No dc planning needs anticipated at this time. He has insurance and a pcp in place for f/u care. No cm interventions indicated at this time. Will follow along should dc planning needs arise.
[2020-08-16] MEDS ORDERED: GLUCOSAMINE CH1 EAC1 PO (14:04)
--- NOTE | 2020-08-16 15:00 | NUR ---
Patient just left the room with OR/GI lab staff for EGD. Consent will be signed after physician talks with patient. Nurse explained proceedure to patient. Staff nurse from GI Lab and [facility] varified patients name, date of , and proceedure prior to patient leaving the room.
--- NOTE | 2020-08-16 15:48 | NUR ---
1548- PATIENT RETURNED FROM OR/GI LAB/PROCEEDURE. HE IS ORIENTED AND COOERATIVE. VITAL SIGNS WILL BE DOCUMENTED. PROCEEDURE STAFF REMAINED IN ROOM FOR A BIT TO FULLY RECOVER PATENT.
--- NOTE | 2020-08-17 01:02 | NUR ---
ASSESSMENT: PT TRANSFERRED FROM ICU AT APPROXIMATELY 2300 VIA WC. PT IS ALERT AND ORIENT TIMES FOUR. CALLS OUT APPROPRIATELY, DENIES PAIN, SOB AND N/V. VSS, AFEBRILE. A-FIB PER MONITOR. NOC OX STUDY BEING ADMINISTERED TONIGHT; ON RA. POSSIBLE DC IN THE AM. VOIDING PER URINAL. GOOD PROGRESS TOWARDS DC GOALS. WILL CONTINUE TO MONITOR.
[2020-08-17 04:58] LABS: HEMATOCRIT 24.3 % (42.0-52.0); HEMOGLOBIN 8.3 gm/dL (14.0-18.0); MCV 91.2 fL (80.0-100.0); RBC 2.66 mil/uL (4.50-6.00); RDW 14.1 % (10.5-14.5); WBC 6.2 thou/uL (4.0-11.0)
[2020-08-17 05:06] LABS: CREATININE 1.2 mg/dL (0.7-1.3); POTASSIUM 4.2 mmol/L (3.5-5.1)
[2020-08-17 05:41] VITALS: BP 121/71
[2020-08-17 07:58] VITALS: BP 97/46
[2020-08-17] MEDS ORDERED: METOPROLOL SUCC25 M1 PO (09:07)
--- NOTE | 2020-08-17 09:53 | NUR ---
GRACIEICONTINUE IV AND TELE. PT UNDERSTANDS ALL FOLLOW UP ORDERS. WILL DC TO HOME.
[2020-08-17 09:56] VITALS: BP 97/46
[2020-08-17 10:04] VITALS: BP 97/46
--- NOTE | 2020-08-21 15:05 | HC ---
[place] [address] CONSULTATION Name: REJI COBURN Room #: 218-P [facility] IN M.R.#: [id number] Admission: 08/15/20 Attend Phys: Arthur Cowart MD Discharge: 08/17/20 Date of : 50 Report #: [id number] THIS REPORT FOR: cc: Benton Kendall MD, Steven E. MD McElhinney, Christian C. MD ~ DOC #: [id number] cc: Stewart Bui MD, Ramón Rock DO, Saida A. Alarab, APRN Christian C. McElhinney, MD DATE OF SERVICE: 08/15/2020 HISTORY OF PRESENT ILLNESS: The patient is a 69-year-old male who reports having a fall last Friday hitting his head. Since that time, he has been somewhat confused, has been complaining of dizziness. Denies any headache. He has had some intermittent nausea and vomiting even this morning. Apparently last week had a melanotic type stool. He is on Xarelto and then also had a dark stool yesterday as well. He admit hemoglobin is 6.7. He is receiving his first unit of packed cells at this time. Two units have been ordered. His INR was 1.05. No previous history of GI bleed. He states his last colonoscopy was many years ago and he was not sedated fully. He has had a paraesophageal hernia repair and apparently underwent an upper endoscopy at some point, but he is unsure of the timing of this. He currently denies any heartburn, dysphagia. He denies any abdominal pain. He apparently, has been more irritable recently per his family member. He did undergo a CT scan of his head today showing no acute intracranial abnormalities, severe confluent low attenuation in the periventricular white matter, there is no significant vascular calcifications. This could be related to advanced chronic white matter microvascular ischemia, demyelinating disease or other less likely etiologies. PAST MEDICAL HISTORY: Diabetes, hypertension, atrial fibrillation, hyperlipidemia, congestive heart failure. MEDICATIONS: From home Norvasc, Benicar, Glucophage, folic acid, Xarelto, Lipitor, furosemide, Lopressor, Celexa, Glucotrol. ALLERGIES: No known drug allergies. SOCIAL HISTORY: Denies any tobacco use or alcohol use currently. REVIEW OF SYSTEMS: As per HPI. FAMILY HISTORY: Negative for colon cancer. PHYSICAL EXAMINATION: VITAL SIGNS: Temperature is 36.6, pulse 79, blood pressure 102/57, respiratory [address] [address] CONSULTATION Name: REJI COBURN Room #: 218-P [facility] IN M.R.#: [id number] Admission: 08/15/20 Attend Phys: Arthur Cowart MD Discharge: 08/17/20 Date of : 50 Report #: [id number] rate is 12. GENERAL: He is alert and oriented x 3, in no acute distress. HEENT: Sclerae nonicteric. Oropharynx clear. NECK: Supple. HEART: Regular rate and rhythm. LUNGS: Clear to auscultation anteriorly bilaterally. ABDOMEN: Soft, nontender, nondistended. Normoactive bowel sounds. EXTREMITIES: No cyanosis, clubbing or edema. LABORATORY DATA: WBC is 9.2, hemoglobin 6.7, platelet count 365. INR 1.05. Sodium 142, potassium 4.2, chloride 104, bicarbonate 24, BUN 48, creatinine 2.3, glucose 200, calcium 8.4, magnesium 1.5. Iron is 19, TIBC is 356, percent sat 5, ferritin 14, total bilirubin 0.4, AST 8, ALT 18, alkaline phosphatase 67. Troponin less than 0.06. BNP is 10,733, total protein is 6.8, albumin 3.6. TSH 8.5. T4 is 1.2. ASSESSMENT AND PLAN: Anemia with recent melanotic type stools. The patient has been on Xarelto. This has now been held. I had a long discussion with the patient today that suggest a possible upper GI bleed. No previous history of GI bleed in the past. Agree with transfusions and monitoring his hemoglobin closely. PLAN: For upper endoscopy in the near future. Initially, we will have cardiology evaluate as he had elevated PA pressures on his previous echocardiogram, could start clear liquids at this time, continue PPI drip. Thank you for allowing me to participate in his care. Tyron Brantley MD [facility] <ELECTRONICALLY SIGNED> By: Tyron Brantley MD 08/21/20 1505 1356 2211 Tyron Brantley MD /nt
--- NOTE | 2020-08-21 18:06 | PATH ---
[facility] [address] [place] [address] PATHOLOGY RPT PROCEDURE Name: REJI WALTERS Room #: 218-P DIS IN M.R.#: [id number] Admission: 08/15/20 Date of : 50 Discharge: 08/17/20 Report #: [id number] Path Case #: [id number] [facility] Accession Number: [id number] . 01 Material submitted: . gastrointestinal site - RANDOM GASTRIC BIOPSY . 01 Clinical history: . TIFFANIE, ANEMIA, GI BLEED, HYPOTESNION, MELENA EGD . 02 Diagnosis: Gastric mucosa, random gastric, endoscopic biopsy: - Mild reactive gastropathy. - Negative for intestinal metaplasia or atrophy. - Negative for Helicobacter pylori (properly controlled immunohistochemical stain performed). (IUV:pit; 08/21/2020) . [facility] 08/21/2020 [facility] Local . 02 Electronically signed: . Palmira Cordova MD, Pathologist NPI- [id number] . 01 Gross description: . The specimen is received in formalin, labeled "Reji Walters, random gastric biopsy rule out H. pylori" received as multiple fragments of soft fishman tissue measuring up to 0.3 cm. Entirely submitted in A1. ([facility]; 08/18/2020) MAGDALENO/MAGDALENO 08/21/2020 1339 Local . 02 Pathologist provided ICD-10: K31.9 . 02 CPT . 299095, S02710 Specimen Comment: A courtesy copy of this report has been sent to [phone] Specimen Comment: [phone], Specimen Comment: Report sent to ,DR MEADOWS / DR ETIENNE Performed at: 01 [place] [id number] [id number] MD Jordan De La Cruz MD Phone: [phone] Performed at: 02 [facility] [address] [place] [address] PATHOLOGY RPT PROCEDURE Name: REJI WALTERS Room #: 218-P DIS IN M.R.#: [id number] Admission: 08/15/20 Date of : 50 Discharge: 08/17/20 Report #: [id number] Path Case #: [id number] [address] [place] [address] [id number] MD Palmira Cordova MD Phone: [phone]
== END 2020-08-17 10:15 | disposition home or self-care (01) | DRG 377 ==
LOC: ER 08:00 → EROBS 11:47 → ICU 11:47 → 2N 08-17 00:01
PROVIDERS: Emergency Medicine; Nurse Practitioner; Specialist; ADMIT Hospitalist; ATTEND Hospitalist
PROC: 30233N1 Transfusion of Nonautologous Red Blood Cells into Peripheral Vein, Percutaneous Approach (ICD-10-PCS; principal; 2020-08-15)
PROC: 0DB78ZX Excision of Stomach, Pylorus, Via Natural or Artificial Opening Endoscopic, Diagnostic (ICD-10-PCS; 2020-08-16)
DX: K25.4 Chronic or unspecified gastric ulcer with hemorrhage (principal); K20.91 Esophagitis, unspecified with bleeding; N17.9 Acute kidney failure, unspecified; I50.20 Unspecified systolic (congestive) heart failure; D62 Acute posthemorrhagic anemia; I48.21 Permanent atrial fibrillation; E11.9 Type 2 diabetes mellitus without complications; E78.5 Hyperlipidemia, unspecified; K21.9 Gastro-esophageal reflux disease without esophagitis; I95.9 Hypotension, unspecified; I11.0 Hypertensive heart disease with heart failure; R06.81 Apnea, not elsewhere classified; E66.01 Morbid (severe) obesity due to excess calories; Z68.32 Body mass index [BMI] 32.0-32.9, adult
CPT/HCPCS: 10078; 62110; 62900; 85076

== ENCOUNTER → 2021-04-11 | Outpatient (CLI) | payer OTHER ==
[~2021-04-11] MED LIST changes: +ALIEVE; +GLIPIZIDE 10 MG10 MG PO; +GLUCOSAMINE CH1 EAC1 PO; +HYDROCORT PO; +LIPITOR 20 MG T20 M1 PO; +METOPROLOL SUCC25 M1 PO; +TORSEMIDE20 MG PO
== END ==
LOC: SJCVC 15:23
PROVIDERS: ATTEND Internal Medicine Cardiovascular Disease
DX: I48.21 Permanent atrial fibrillation (principal); I10 Essential (primary) hypertension; E78.00 Pure hypercholesterolemia, unspecified; E11.9 Type 2 diabetes mellitus without complications; G47.33 Obstructive sleep apnea (adult) (pediatric); Z87.19 Personal history of other diseases of the digestive system